=== PATIENT | female | born 1980 | race Caucasian/White ===

== ENCOUNTER 2020-09-18 19:08 | Emergency (ER) | payer OTHER ==
[~2020-09-18] VITALS: Ht 162.6 cm; Wt 59.0 kg
[2020-09-18 19:30] LABS: URINE BILIRUBIN NEGATIVE (Negative); URINE BLOOD 3+ (Negative); URINE CLARITY CLEAR; URINE COLOR YELLOW; URINE GLUCOSE-RANDOM* NEGATIVE (Negative); URINE KETONES NEGATIVE (Negative); URINE NITRITE-REFLEX NEGATIVE (Negative); URINE PROTEIN (DIPSTICK) NEGATIVE (Negative); URINE SPECIFIC GRAVITY 1.025 (1.005-1.035)
[2020-09-18 19:37] LABS: URINE LEUKOCYTES-REFLEX 2+ (Negative)
[2020-09-18 19:39] LABS: SQUAMOUS >10 Many /LPF (0-3); URINE WBC-REFLEX >25 Many /HPF (0-5); WBC CLUMPS Moderate (None Seen)
[2020-09-18 19:40] LABS: MUCUS 0-3 Light strn/LPF (None Seen); URINE RBC >20 Many /HPF (NONE SEEN)
[2020-09-18 19:42] LABS: CASTS None Seen /LPF (None Seen); CRYSTALS None Seen /LPF (None Seen)
[2020-09-18 19:47] LABS: ABSOLUTE NEUTROPHILS 4.1 thou/uL (1.4-8.2); BASOPHILS 0.4 % (0.0-2.0); EOSINOPHILS 1.6 % (0.0-3.0); HEMATOCRIT 37.3 % (37.0-47.0); HEMOGLOBIN 12.5 gm/dL (12.0-15.0); LYMPHOCYTES 29.9 % (24.0-44.0); MCH 30.1 pg (26.0-34.0); MCHC 33.6 g/dL (28.0-37.0); MCV 89.6 fL (80.0-100.0); PLATELET COUNT 242 thou/uL (150-400); POLYS 61.1 % (36.0-66.0); RBC 4.17 mil/uL (4.20-5.00); RDW 12.6 % (10.5-14.5); WBC 6.7 thou/uL (4.0-11.0)
[2020-09-18 19:56] LABS: CALCIUM 9.3 mg/dL (8.5-10.1)
[2020-09-18 20:02] LABS: ALBUMIN 4.1 g/dL (3.4-5.0); TOTAL BILIRUBIN 0.6 mg/dL (0.2-1.0); TOTAL PROTEIN 7.7 g/dL (6.4-8.2)
[2020-09-18] MEDS ORDERED: ZOFRAN ODT4 MG PO ×2 (20:19→21:00)
[2020-09-18] MEDS ORDERED: BACTRIM DS TAB1 EACH PO ×2 (20:19→21:00)
[2020-09-18 21:13] VITALS: BP 131/70
== END 2020-09-18 20:30 | disposition home or self-care (01) ==
LOC: ER 19:08
PROVIDERS: Physician Assistant
DX: N39.0 Urinary tract infection, site not specified (principal); R11.0 Nausea; Z90.49 Acquired absence of other specified parts of digestive tract; Z98.890 Other specified postprocedural states

== ENCOUNTER 2020-09-20 09:47 | Emergency (ER) | payer OTHER ==
[~2020-09-20] VITALS: Ht 162.6 cm; Wt 59.0 kg
[~2020-09-20 09:47] MED LIST: BACTRIM DS TAB1 EACH PO; ZOFRAN ODT4 MG PO
[2020-09-20 09:59] LABS: URINE BILIRUBIN NEGATIVE (Negative); URINE BLOOD 3+ (Negative); URINE CLARITY CLEAR; URINE COLOR YELLOW; URINE GLUCOSE-RANDOM* NEGATIVE (Negative); URINE KETONES TRACE (Negative); URINE LEUKOCYTES-REFLEX NEGATIVE (Negative); URINE NITRITE-REFLEX NEGATIVE (Negative); URINE PROTEIN (DIPSTICK) 1+ (Negative); URINE SPECIFIC GRAVITY >= 1.030 (1.005-1.035)
[2020-09-20 10:07] LABS: CASTS None Seen /LPF (None Seen); MUCUS 0-3 Light strn/LPF (None Seen); SQUAMOUS 4-10 Moderate /LPF (0-3); URINE RBC >20 Many /HPF (NONE SEEN); URINE WBC-REFLEX 0-5 Rare /HPF (0-5)
[2020-09-20 10:08] LABS: AMORPHOUS URATES Few /LPF (None Seen); BACTERIA-REFLEX 1-9 Few /HPF (None Seen)
[2020-09-20 10:14] LABS: ABSOLUTE NEUTROPHILS 6.6 thou/uL (1.4-8.2); BASOPHILS 0.2 % (0.0-2.0); HEMATOCRIT 38.1 % (37.0-47.0); HEMOGLOBIN 13.1 gm/dL (12.0-15.0); LYMPHOCYTES 11.9 % (24.0-44.0); MCH 30.2 pg (26.0-34.0); MCHC 34.3 g/dL (28.0-37.0); MCV 88.3 fL (80.0-100.0); MONOCYTES 6.4 % (1.0-8.0); PLATELET COUNT 248 thou/uL (150-400); POLYS 80.5 % (36.0-66.0); RBC 4.32 mil/uL (4.20-5.00); RDW 12.1 % (10.5-14.5); WBC 8.2 thou/uL (4.0-11.0)
[2020-09-20 10:23] LABS: CALCIUM 8.7 mg/dL (8.5-10.1); CREATININE 1.1 mg/dL (0.6-1.0); POTASSIUM 4.1 mmol/L (3.5-5.1)
[2020-09-20 10:29] LABS: ALBUMIN 4.2 g/dL (3.4-5.0); TOTAL BILIRUBIN 0.8 mg/dL (0.2-1.0); TOTAL PROTEIN 7.9 g/dL (6.4-8.2)
[2020-09-20 12:33] VITALS: BP 105/65
== END 2020-09-20 12:33 | disposition home or self-care (01) ==
LOC: ER 09:47
PROVIDERS: Emergency Medicine
DX: R10.2 Pelvic and perineal pain (principal); R10.30 Lower abdominal pain, unspecified; Z98.890 Other specified postprocedural states; Z90.49 Acquired absence of other specified parts of digestive tract

== ENCOUNTER 2020-09-30 18:10 | Emergency (ER) | payer OTHER ==
[~2020-09-30] VITALS: Ht 162.6 cm; Wt 59.0 kg
[2020-09-30 18:20] VITALS: BP 97/78
[2020-09-30 18:27] LABS: URINE BILIRUBIN NEGATIVE (Negative); URINE BLOOD NEGATIVE (Negative); URINE CLARITY CLEAR; URINE COLOR YELLOW; URINE GLUCOSE-RANDOM* NEGATIVE (Negative); URINE KETONES NEGATIVE (Negative); URINE LEUKOCYTES-REFLEX NEGATIVE (Negative); URINE NITRITE-REFLEX NEGATIVE (Negative); URINE PROTEIN (DIPSTICK) NEGATIVE (Negative); URINE SPECIFIC GRAVITY 1.015 (1.005-1.035)
== END 2020-09-30 18:37 | disposition home or self-care (01) ==
LOC: ER 18:10
PROVIDERS: Physician Assistant
DX: R30.0 Dysuria (principal); Z90.49 Acquired absence of other specified parts of digestive tract; Z98.890 Other specified postprocedural states

== ENCOUNTER 2021-01-18 10:11 | Emergency (ER) | payer OTHER ==
[~2021-01-18] VITALS: Ht 162.6 cm; Wt 56.7 kg
[2021-01-18] MEDS ORDERED: LEVOTHYROXINE175 MCG PO (10:18)
[2021-01-18] MEDS ORDERED: DAILY VITE1 EAC1 PO (10:19)
[2021-01-18 10:43] LABS: ABSOLUTE NEUTROPHILS 4.4 thou/uL (1.4-8.2); BASOPHILS 0.3 % (0.0-2.0); EOSINOPHILS 1.5 % (0.0-3.0); HEMATOCRIT 40.7 % (37.0-47.0); LYMPHOCYTES 18.5 % (24.0-44.0); MCH 30.2 pg (26.0-34.0); MCHC 34.4 g/dL (28.0-37.0); MCV 87.7 fL (80.0-100.0); MONOCYTES 8.9 % (1.0-8.0); PLATELET COUNT 228 thou/uL (150-400); POLYS 70.8 % (36.0-66.0); RBC 4.64 mil/uL (4.20-5.00); WBC 6.2 thou/uL (4.0-11.0)
[2021-01-18 10:52] LABS: ANION GAP 10 mmol/L (7-16); BUN 13 mg/dL (7-18); CHLORIDE 106 mmol/L (98-107); CO2 23 mmol/L (21-32); CREATININE 0.8 mg/dL (0.6-1.0); GLUCOSE 107 mg/dL (74-106); POTASSIUM 3.7 mmol/L (3.5-5.1); SODIUM 139 mmol/L (136-145)
[2021-01-18 11:45] VITALS: BP 132/74
--- NOTE | 2021-01-19 11:48 | EKG ---
[place] [id number] [facility] [place] [address] ELECTROCARDIOGRAM REPORT Name: SHANNAN PIKE Room #: DEP Arlet#: [id number] Admission: 01/18/21 Attend Phys: Discharge: 01/18/21 Date of : 80 Report #: [id number] [facility] ED Test Date: 2021-01-18 Test Time: 10:20:32 Pat Name: SHANNAN PIKE Department: Room: Gender: F Defect Cutter: HALEY : 1980 Requested By: Eben Pagan Order Number: [id number] MD: Oneal Roberts Measurements Intervals [place] Rate: 82 P: 72 AL: 143 QRS: 94 QRSD: 85 T: 58 QT: 347 QTc: 406 Interpretive Statements Sinus rhythm Probable left atrial enlargement Borderline right axis deviation Baseline wander in lead(s) II,III,aVF,V3 No previous ECG available for comparison Electronically Signed On 01-19-2021 11:47:51 CDT by Oneal Roberts [email or web address] <ELECTRONICALLY SIGNED> By: Oneal Roberts MD, [facility] 01/19/21 1147 1020 1020 Oneal Roberts MD, FACC /EPI
== END 2021-01-18 11:45 | disposition home or self-care (01) ==
LOC: ER 10:11
PROVIDERS: Emergency Medicine
DX: M79.604 Pain in right leg (principal); M79.605 Pain in left leg; R53.1 Weakness; R07.89 Other chest pain; R06.02 Shortness of breath; Z20.822 Contact with and (suspected) exposure to COVID-19; Z98.890 Other specified postprocedural states

== ENCOUNTER 2021-01-29 12:33 | Emergency (ER) | payer OTHER ==
[~2021-01-29] VITALS: Ht 165.1 cm; Wt 56.7 kg
[~2021-01-29 12:33] MED LIST changes: +DAILY VITE1 EAC1 PO; +LEVOTHYROXINE175 MCG PO
[2021-01-29] MEDS ORDERED: BUTALB-APAP-CA1 EACH PO (14:10)
[2021-01-29 14:22] VITALS: BP 110/78
== END 2021-01-29 14:22 | disposition home or self-care (01) ==
LOC: ER 12:33
DX: G43.909 Migraine, unspecified, not intractable, without status migrainosus (principal); Z79.899 Other long term (current) drug therapy; Z90.49 Acquired absence of other specified parts of digestive tract; Z98.890 Other specified postprocedural states